=== PATIENT | male | born 1950 | race Caucasian/White ===

== ENCOUNTER → 2018-01-09 | Outpatient (CLI) | payer MEDICARE ==
[2018-01-09 13:00] LABS: HCT 43.9 % (39.0-53.0); HGB 15.3 gm/dL (13.0-17.5); MCH 33.4 pg (25.0-35.0); MCHC 34.9 g/dL (31.0-37.0); MCV 95.8 fL (80.0-100.0); Platelet Count 207 k/uL (150-450); RBC 4.59 m/uL (4.30-5.90); RDW 13.2 % (11.5-15.5); WBC 6.7 k/uL (3.8-10.6)
[2018-01-09 13:08] LABS: INR 1.1 (<1.2); Partial Thromboplastin Time 23.6 sec (22.0-30.0); Prothrombin Time 10.5 sec (9.0-12.0)
[2018-01-09 13:24] LABS: ALT 28 U/L (21-72); AST 23 U/L (17-59); Albumin 3.9 g/dL (3.5-5.0); Alkaline Phosphatase 65 U/L (38-126); Anion Gap 8 mmol/L; Blood Urea Nitrogen 15 mg/dL (9-20); Calcium 9.4 mg/dL (8.4-10.2); Carbon Dioxide 27 mmol/L (22-30); Chloride 107 mmol/L (98-107); Glucose 96 mg/dL (74-99); Potassium 4.4 mmol/L (3.5-5.1); Sodium 142 mmol/L (137-145); Total Bilirubin 0.7 mg/dL (0.2-1.3); Total Protein 6.2 g/dL (6.3-8.2)
[2018-01-09 14:43] LABS: Appearance,Urine Clear (Clear); Bilirubin,Urine Negative (Negative); Blood,Urine Negative (Negative); Color,Urine Yellow; Glucose,Urine (UA) Negative (Negative); Ketones,Urine Negative (Negative); Leukocyte Esterase,Urine Negative (Negative); Nitrite,Urine Negative (Negative); PH, Urine 5.5 (5.0-8.0); Protein,Urine Negative (Negative); Specific Gravity,Urine 1.019 (1.001-1.035); Urobilinogen,Urine <2.0 mg/dL (<2.0)
== END | disposition home or self-care (01) ==
LOC: LABPAT 11:58
PROVIDERS: ATTEND Orthopaedic Surgery
DX: Z01.812 Encounter for preprocedural laboratory examination (principal)
CPT/HCPCS: 36415; 80053; 81003; 85027; 85610; 85730; 87070

== ENCOUNTER 2018-01-13 10:25 | Inpatient (IN) | payer BC, MEDICARE ==
[2018-01-06 14:09] VITALS: BMI 29.5
[~2018-01-13 10:25] MED LIST: ACETAMINOPHEN TAB 500 MG TAB PO ONE; MELOXICAM 7.5 MG TAB PO ONE; MIDAZOLAM 2 MG/2 ML VIAL IV PRN; ROPIVACAINE 246.25 MG, EPINEPHrine 0.5 MG, KETOROLAC 30 MG, cloNIDine HCL/PF 80 MCG, WA... MISCELLANE ONE; TRANEXAMIC ACID 1,000 MG in SODIUM CHLORIDE 0.9% 50 ML IVPB ONE; ceFAZolin IN SWFI 2 GM/20 ML SYRINGE IVP ONE
[2018-01-13] MEDS: LACTATED RINGERS 1,000 ML IV SCH (12:40)
[2018-01-13] MEDS ORDERED: ONDANSETRON 4 MG/2 ML VIAL IVP ONE (13:05)
[2018-01-13] MEDS ORDERED: ROPIVACAINE 1,100 MG, SODIUM CHLORIDE 0.9% 500 ML 330 ML MISCELLANE PRN ×2 (13:45)
--- NOTE | 2018-01-13 13:47 | P.ONQ ---
Anesthesiology Proc Note - PNB - Peripheral Nerve Block Performed Right Adductor Canal Infusion Time Out Performed: Yes Procedure Start Time: 13:09 Procedure Stop Time: 13:17 Indication: Acute Post-Operative Pain, Requested by physician Sedation Type: Sedate with meaningful contact maintained Preparation: Sterile Dressing Position: Supine Catheter: Indwelling Needle Types: On-Q Needle Size: 100mm (4") Needle Gauge: 21 Technique: Ultrasound Injectate: 0.5% Ropivacaine (see comment for volume) (ropi .5% 20cc) Blood Aspirated: No Pain Paresthesia on Injection Noted: No Resistance on Injection: Normal Events: Uneventful and Well Tolerated
[2018-01-13] MEDS ORDERED: BISACODYL 10 MG SUPP RECTAL PRN (14:29)
[2018-01-13] MEDS ORDERED: DIAZEPAM 5 MG TAB PO PRN (14:29)
[2018-01-13] MEDS ORDERED: NA PHOS,M-B/NA PHOS,DI-BA 133 ML ENEMA RECTAL PRN (14:29)
[2018-01-13] MEDS ORDERED: NALOXONE 0.4 MG/ML 1 ML VIAL IV PRN (14:29)
[2018-01-13] MEDS ORDERED: HYDROcodone/APAP 5-325MG 1 EACH TAB PO PRN (14:29)
[2018-01-13] MEDS ORDERED: MAGNESIUM HYDROXIDE 2,400 MG/10 ML CUP PO PRN (14:29)
[2018-01-13] MEDS ORDERED: HYDROmorphone 1 MG/ML 1 ML SYRINGE IVP PRN ×3 (14:29)
[2018-01-13] MEDS ORDERED: KETAMINE 10 MG/ML 20 ML VIAL ONE (14:52)
[2018-01-13] MEDS ORDERED: PROPOFOL 10 MG/ML 20 ML VIAL IV ONE (14:52)
[2018-01-13] MEDS ORDERED: HYDROmorphone (PF) 1 MG/ML ONE (14:52)
[2018-01-13] MEDS ORDERED: GLYCOPYRROLATE 0.2 MG/ML 2 ML VIAL ONE (14:52)
[2018-01-13] MEDS ORDERED: fentaNYL (PF) 50 MCG/ML 2 ML AMP ONE (14:52)
[2018-01-13] MEDS ORDERED: SUCCINYLCHOLINE CHLORIDE 100 MG/5 ML SYR IV ONE (14:52)
[2018-01-13] MEDS ORDERED: LIDOCAINE 1% INJ 10MG/ML (20 ML MDV) ONE (14:52)
[2018-01-13] MEDS ORDERED: MIDAZOLAM 2 MG/2 ML VIAL ONE (14:52)
[2018-01-13] MEDS ORDERED: SODIUM CHLORIDE 0.9% 100 ML BAG ONE (14:52)
[2018-01-13] MEDS ORDERED: TRANEXAMIC ACID 1,000 MG/10 ML VIAL ONE (14:52)
[2018-01-13] MEDS ORDERED: ePHEDrine SULFATE/0.9% NACL/PF 50 MG/5 ML SYRINGE IV ONE (14:52)
[2018-01-13] MEDS ORDERED: ceFAZolin 3,000 MG in SODIUM CHLORIDE 0.9% IRRIGATIO 3,000 ML IRRIGATION ONE (14:52)
--- NOTE | 2018-01-13 16:20 | P.OP ---
Date of Procedure: 01/13/18 Preoperative Diagnosis: Severe osteoarthritis right knee Postoperative Diagnosis: Severe osteoarthritis right knee Procedure(s) Performed: Right total knee arthroplasty Implants: Abdi [employer] Nephew Journey II CR Oxinium cruciate retaining femoral component size 8, right [employer] Journey right nonporous tibial baseplate size 7 [employer] Journey II, XLPE CR articular insert, size 9 mm, Size 7-8 right [employer] Journey BCS resurfacing round patellar component, 32 mm All components were cemented using Palacos R bone cement.. The articulation is Oxinium on polyethylene. Anesthesia: spinal Surgeon: Jamarcus Bowie Clinical Genetics Laboratory Chief #1: Ro Hamm Estimated Blood Loss (ml): 50 Pathology: other (Bone and cartilage) Condition: stable Disposition: PACU Indications for Procedure: After failure of conservative treatment we discussed the surgical and nonsurgical treatment options at length. Patient wishes to proceed with a total knee arthroplasty. Complications specific to this procedure were discussed at length, including but not limited to infection, bleeding, stiffness , and nerve injury. Patient is aware of all these complications and informed consent was obtained Operative Findings: The operative findings are consistent with severe osteoarthritis of the right knee Description of Procedure: Patient was seen in the preoperative area consent was reviewed and operative site was marked with a skin marker. An adductor canal pain catheter was placed by anesthesia in the preoperative area. Patient was then brought to the operating room and given preoperative antibiotics intravenously. A spinal anesthetic was administered by the anesthesia department. A tourniquet was placed on the upper thigh and the lower extremity was prepped and draped in usual sterile fashion. A gram of transexamic acid was given. A universal timeout was then performed which confirmed the patient's name, surgical site, ALLERGIES, and consent. The lower extremity was then exsanguinated and tourniquet was inflated to 250 mmHg. A standard and anterior midline approach to the knee was performed. The skin and subcutaneous tissue was dissected down to the patellar tendon. A medial parapatellar arthrotomy was then performed. The knee was then extended, the patellar was everted, and the knee was again flexed. Anterior horns of both menisci were excised, and a release was performed to the posterior medial aspect of the knee. On gross visual inspection, there was complete loss of articular cartilage in the medial and patellofemoral joint spaces. There was also significant cartilage damage in the lateral compartment. There were multiple periarticular osteophytes which were then removed with a Ronguer. The femoral canal was then opened with the appropriate drill, and the intramedullary femoral cutting guide was then placed and set for 5 of valgus. The distal femoral cutting block was then pinned in place, and the distal femur was then cut. The cutting block was then removed and the cut was checked for flatness. Next, the sizing guide was then placed and set for 3 external rotation based off of the epicondylar axis and Whitesides line. After the femur was sized, the appropriate 4-in-1 cutting block was then pinned in place. The anterior condyles were cut without notching. The posterior and chamfer cuts were performed while protecting the collateral ligaments. The cutting block was then removed, and the femoral canal was plugged with autologous bone. Attention was then directed to the tibia. The remaining ACL was removed with a Ronguer, and the tibia was then gently subluxed forward with a large bent knee retractor. Any remaining menisci was excised. The posterior lateral corner was cauterized in order to cauterize the lateral geniculate artery. The extra medullary tibial cutting guide was then placed, set for the appropriate rotation , slope, and depth of resection. The proximal tibia cutting guide was then pinned in place. Proximal tibia was then cut and sized. Next trials were then placed with the appropriate-sized insert. The knee was able to fully extend and flex to 130 and was stable throughout all range of motion. The knee was then extended, patella everted. Patella was then measured, and then using an osteotomy guide, the patella was cut at the appropriate level. The patella was then measured and drilled and the patella trial was then placed. The knee was then taken through range of motion with the patella trial and the patella tracked normally. The knee was then extended patella trial was then removed and the patella was everted. Knee was then flexed and lug holes were drilled through the femoral trial and the femoral trial was then removed. The tibial was then exposed, and the tibial broach guide was then pinned in place after it was set for the appropriate rotation to allow for the most coverage without overhang. The tibia was then reamed and broached. The cut surfaces of bone were then irrigated with pulsatile lavage. The posterior structures were injected with the ropivacaine solution. The knee was also irrigated with Irrisept solution. The components were then opened, the cement was mixed, and the components were then cemented in place. The cement was allowed to harden with the knee in full extension. While the cement was hardening, the remaining soft tissues were then injected with a ropivacaine solution, which consisted of 246.25 mg of ropivacaine, 0.5 mg of epinephrine, 30 mg of Toradol, 80 g of clonidine, and 48.45 mL of sterile water, for a total of 100 mL of fluid injected. After the cemented hardened. The tourniquet was released, and hemostasis was obtained. A second gram of transexamic acid was given. The knee was again irrigated. The knee was again taken through range of motion and found to be stable throughout all range of motion of 0-130 , and the patella tracked normally. The fascia was then closed with #2 strata fix suture. The subcutaneous tissue was closed with 3-0 Vicryl and 3-0 strata fix. Dermabond glue was used for the skin and placed with the knee in flexion. The patient was placed in a sterile silver dressing. Patient was then transferred to recovery room in stable condition. The pediatric medical assistant RE Caicedo was required due the complexity surgery and the need for a skilled surgical clinical reviewer. She assisted in positioning, draping, retraction, and closure of the wound.
[2018-01-13] MEDS: fentaNYL (PF) 50 MCG/ML 2 ML AMP IV PRN ×4 (16:56→17:42)
--- NOTE | 2018-01-13 17:22 | XR ---
PROCEDURE: XR knee limited RT 2V DATE AND TIME: 01/13/2018 5:05 PM CLINICAL INDICATION: [facility] Evaluation for Postop abnormality and alignment TECHNIQUE: Department protocol. 2V COMPARISON: None FINDINGS: TKR is well-seated with anatomic positioning and alignment. No unexpected postoperative fin dings. IMPRESSION: Post procedure.
[2018-01-13] MEDS: SODIUM CHLORIDE 0.9% 1,000 ML IV SCH (17:51)
[2018-01-13] MEDS: SENNOSIDES-DOCUSATE SODIUM 1 EACH TAB PO SCH (21:58)
[2018-01-13] MEDS: ASPIRIN 325 MG TAB PO SCH (21:58)
[2018-01-13] MEDS: ceFAZolin IN SWFI 2 GM/20 ML SYRINGE IVP SCH (22:31)
--- NOTE | 2018-01-14 00:06 | CONS ---
CONSULTATION DATE OF CONSULTATION: 01/13/2018. REASON FOR CONSULTATION: Medical management requested by Dr. Bowie. CONSULTATION: This is a very pleasant 67-year-old patient of Dr. Prashanth Childers. The patient has undergone a right total knee arthroplasty. Post procedure, had some nausea. Other stable medical conditions include osteoarthritis, hypertension. No chest pain or short of breath. Denies any cardiac history. Somewhat tired post procedure. REVIEW OF SYSTEMS: CONSTITUTIONAL: Tired. HEENT: None. RESPIRATORY none. GASTROINTESTINAL: Nausea. GENITOURINARY: None. MUSCULOSKELETAL: Arthritic pain in different joints. DERMATOLOGICAL, HEMATOLOGIC, LYMPHATIC: none. PSYCHIATRY none. NEUROLOGICAL none. PAST MEDICAL HISTORY: Osteoarthritis, hypertension. PAST SURGICAL HISTORY: Back surgery, cervical fusion. SOCIAL HISTORY: . Smoked a pack a day for 30 years. Stopped in 2002. Occasional marijuana. Retired from hospital management. FAMILY HISTORY: Of cancer, type unknown. HOME MEDICATIONS: 1. Norvasc 10 mg a day. 2. Altace 10 mg b.i.d. 3. Naproxen 500 mg p.o. b.i.d. 4. Hydrochlorothiazide 12.5 p.o. daily. 5. Cardura 2 mg p.o. b.i.d. 6. Aspirin 81 mg p.o. daily. ALLERGIES: None. PHYSICAL EXAMINATION: VITAL SIGNS: Temperature 98.5, pulse 72, respirations 17, blood pressure 147/92, pulse ox 95 percent on 2 L. GENERAL APPEARANCE: Average build, lying in bed, tired appearing. EYES: Pupils are equal. Conjunctivae normal. HEENT: External appearance of nose and ears normal. Oral cavity normal. NECK: JVD not raised. Mass not palpable. RESPIRATORY: Effort normal. LUNGS: Slightly decreased breath sounds. CARDIOVASCULAR: 1st and 2nd sounds normal. No edema. ABDOMEN: Soft, nontender. Liver and spleen not palpable. LYMPHATICS: No lymph nodes palpable in the neck and axillae. PSYCHIATRY: Alert and oriented x3. Mood and affect normal. NEUROLOGICAL: Pupils equal. Cranial nerves grossly intact. Power and sensation grossly intact. MUSCULOSKELETAL: Evidence of osteoarthritis especially in the hands. Dressing over the right knee. INVESTIGATIONS: Blood work from 01/09/2018 shows a white count of 6.7, hemoglobin 15.3, potassium 4.4. BUN and creatinine is normal. ASSESSMENT: 1. Right total knee arthroplasty. 2. Primary osteoarthritis. 3. Postop nausea probably side effect of pain medication. 4. Essential hypertension. PLAN: Patient is on aspirin 3-5 twice a day. DVT prophylaxis. Pain medications in place. Also getting gentle hydration. Venodyne boots for DVT prophylaxis also. The patient will get antiemetics. Care was discussed with the patient. Questions were answered. Thank you, Dr. Bowie. Copy to Dr. Childers. MMBROOKEL / MELISSAN: [id number] /
[2018-01-14] MEDS: SODIUM CHLORIDE 0.9% 1,000 ML IV SCH ×2 (04:06→18:01)
[2018-01-14] MEDS: HYDROcodone/APAP 5-325MG 1 EACH TAB PO PRN ×4 (04:29→23:02)
[2018-01-14] MEDS: LACTATED RINGERS 1,000 ML IV SCH (05:09)
[2018-01-14 07:50] LABS: Basophils % (A) 0 %; Eosinophils # (A) 0.1 k/uL (0-0.7); Eosinophils % (A) 1 %; HCT 40.6 % (39.0-53.0); HGB 13.7 gm/dL (13.0-17.5); Lymphocytes % (A) 10 %; MCH 32.9 pg (25.0-35.0); MCHC 33.8 g/dL (31.0-37.0); MCV 97.4 fL (80.0-100.0); Mean Platelet Volume 6.8; Monocytes # (A) 0.5 k/uL (0-1.0); Monocytes % (A) 5 %; Neutrophils # (A) 8.8 k/uL (1.3-7.7); Neutrophils % (A) 83 %; Platelet Count 199 k/uL (150-450); RBC 4.17 m/uL (4.30-5.90); RDW 13.2 % (11.5-15.5); WBC 10.5 k/uL (3.8-10.6)
[2018-01-14] MEDS: HYDROCHLOROTHIAZIDE 12.5 MG CAP PO SCH (07:57)
[2018-01-14] MEDS: MELOXICAM 7.5 MG TAB PO SCH (07:57)
[2018-01-14] MEDS: LISINOPRIL 20 MG TAB PO SCH ×2 (07:57→23:03)
[2018-01-14] MEDS: ASPIRIN 325 MG TAB PO SCH ×2 (07:58→23:03)
[2018-01-14] MEDS: amLODIPine 10 MG TAB PO SCH (07:58)
[2018-01-14] MEDS: DOXAZOSIN 2 MG TAB PO SCH ×2 (08:39→23:03)
[2018-01-14] MEDS: ceFAZolin IN SWFI 2 GM/20 ML SYRINGE IVP SCH (08:39)
--- NOTE | 2018-01-14 09:19 | P.DS ---
Providers Date of admission: 01/13/18 11:25 Expected date of discharge: 01/14/18 Attending physician: Jamarcus Bowie Consults: 01/13/18 14:29 Consult Physician Routine Consulting Provider: Satya Champagne Consult Reason/Comments: medical management Do you want consulting provider notified?: Yes Primary care physician: Prashanth Childers - Discharge Diagnosis(es) (1) Primary osteoarthritis of right knee Current Visit: Yes Status: Acute (2) S/P total knee arthroplasty Current Visit: Yes Status: Acute Hospital Course: This is a 67-year-old male with known history of degenerative arthritis of the right knee. The patient presents for evaluation. After discussion and consideration patient elects to proceed with total knee arthroplasty. The patient is seen preoperatively by Dr. Bowie and medically cleared for surgery by their primary care physician. Patient is admitted to [facility] on 01/13/2018 for total knee arthroplasty. The procedures performed without complication or sequelae. The patient is doing well postoperatively. Labs and vital signs are stable on day of discharge. On day of discharge patient's knee incision is healing well. There is minimal erythema. There is no drainage noted at this time. There is minimal soft tissue swelling to the knee. Patient has full foot and ankle motion without difficulty or pain. Neurovascular status to the right lower extremity is intact. Patient is discharged home in good condition. Please see med rec for accurate list of home medications. Plan - Discharge Summary Discharge Rx Participant: Yes New Discharge Prescriptions: New Aspirin 325 mg PO BID #60 tab HYDROcodone/APAP 5-325MG [[place] 5-325] 1 - 2 tab PO Q4-6H PRN #84 tab PRN Reason: Pain Sennosides [Senokot] 1 tab PO BID #60 tablet No Action amLODIPine [Norvasc] 10 mg PO QAM Ramipril [Altace] 10 mg PO BID Naproxen 500 mg PO BID Hydrochlorothiazide 12.5 mg PO QAM Doxazosin [Cardura] 2 mg PO BID Aspirin [Adult Low Dose Aspirin EC] 81 mg PO DAILY Discharge Medication List Aspirin [Adult Low Dose Aspirin EC] 81 mg PO DAILY 01/06/18 [History] Doxazosin [Cardura] 2 mg PO BID 01/06/18 [History] Hydrochlorothiazide 12.5 mg PO QAM 01/06/18 [History] Naproxen 500 mg PO BID 01/06/18 [History] Ramipril [Altace] 10 mg PO BID 01/06/18 [History] amLODIPine [Norvasc] 10 mg PO QAM 01/06/18 [History] Aspirin 325 mg PO BID #60 tab 01/14/18 [Rx] HYDROcodone/APAP 5-325MG [[place] 5-325] 1 - 2 tab PO Q4-6H PRN #84 tab 01/14/18 [ Rx] Sennosides [Senokot] 1 tab PO BID #60 tablet 01/14/18 [Rx] Follow up Appointment(s)/Referral(s): Jamarcus Bowie DO [Doctor of Osteopathic Medicine] - 2 Weeks Ambulatory/Diagnostic Orders: Continuous Passive Motion (CPM) Machine [DME.AMB1] Time Frame: 3 Weeks, Location : None Selected Activity/Diet/Wound Care/Special Instructions: Weightbearing as tolerated with a walker. CPM 5-6h daily. Leave dressing intact. May be removed by home care nurse in 10 days. May shower with dressing on. Please call [facility] with any questions or concerns, . Discharge Disposition: HOME WITH HOME HEALTH SERVICES
--- NOTE | 2018-01-14 09:25 | P.PN ---
Progress Note - Text Progress Note Date: 01/14/18 The patient is status post[ 1] adductor canal catheter placement. The catheter was placed for postoperative pain control, status post total [Right Knee] arthroplasty. Ropivacaine 0.2% is infusing at[5] mLs per hour. The patient has no complaints of[ right] lower extremity numbness or weakness. Patient's VAS score is[ 2]-10. Assessment: Patient's adductor canal catheter is in place and working appropriately. Plan: continue infusion and adjust it as needed.
[2018-01-14] MEDS: hydrOXYzine PAMOATE 25 MG CAP PO PRN ×3 (09:44→23:03)
--- NOTE | 2018-01-14 18:03 | P.PN ---
Subjective this is a pleasant 67 yo M with pmh of Hypertension who presents for his right knee degenerative disease. he is status post right total knee arthroplasaty when i saw the pt he was sitting in bed, his pain is controlled, pt denies to me chest pain , no dyspnea, no change in urine or bowel habits, no fever, no nausea or vomiting. pt tolerated his meal. his vitals looks stable and he is saturating 93% on room air,wbc: 10.5K, Hemoglobin: 13.7, Platelets: 199 Objective - Vital Signs Vital signs: Vital Signs Temp 98.1 F 01/14/18 14:40 Pulse 63 01/14/18 14:40 Resp 16 01/14/18 14:40 BP 121/73 01/14/18 14:40 Pulse Ox 94 L 01/14/18 14:40 Intake & Output 01/13/18 01/14/18 01/14/18 18:59 06:59 18:59 Intake Total 976 615 500 Output Total 50 400 Balance 926 215 500 Weight 98.883 kg Intake: IV 976 Intake, IV Titration 75 500 Amount Sodium Chloride 0.9% 1, 75 500 000 ml @ 75 mls/hr IV . [id number] [facility] Rx#:[id number] Oral 540 Output: Urine 400 Estimated Blood Loss 50 Other: # Voids 3 - Exam GENERAL: The patient is alert and oriented x3, not in any acute distress. Well developed, well nourished. HEENT: Pupils are round and equally reacting to light. EOMI. No scleral icterus. No conjunctival pallor. Normocephalic, atraumatic. No pharyngeal erythema. No thyromegaly. CARDIOVASCULAR: S1 and S2 present. No murmurs, rubs, or gallops. PULMONARY: Chest is clear to auscultation, no wheezing or crackles. ABDOMEN: Soft, nontender, nondistended, normoactive bowel sounds. No palpable organomegaly. MUSCULOSKELETAL: No joint swelling or deformity. EXTREMITIES: No cyanosis, clubbing, or pedal edema. surgical wound looks clean with no surrounding cellulitis, further exam is deferred to the primary surgical team. NEUROLOGICAL: Gross neurological examination did not reveal any focal deficits. SKIN: No rashes. - Labs CBC & Chem 7: 01/14/18 07:01 Labs: Abnormal Lab Results - Last 24 Hours (Table) 01/14/18 Range/Units 07:01 RBC 4.17 L (4.30-5.90) m/uL Neutrophils # 8.8 H (1.3-7.7) k/uL Assessment and Plan Assessment: This is a pleasant 72 yo M with pmh of Hypertension , hyperlipidemia, steoarthritis, Diabetes Mellitus, kidney stones, possible sleep apnea, spinal stenois, glaucoma, coronary artery disease status post CABG. he presents for his left knee degenerative disease. he is status post left total knee arthroplasaty w . when i saw the pt he was sitting in bed, his pain is controlled ,, pt denies to me chest pain , no dyspnea, no change in urine or bowel habits, no fever, no nausea or vomiting. pt tolerated his meal. his vitals looks stable and he is saturating 98% on room air,wbc: 9.1K, Hemoglobin: 9.6, Platelets: 248. hemoglobin A1c 8.1% Plan: continue with the same treatment , continue with symptomatic treatment , resume home medication , monitor lytes and vitals including glucose , c/w iv fluids, cardiology consult is appreciated. infectious disease consult is appreciated . c /w same antibioitc . GI and DVT prophylaxis , further recommendation based upon pt clinical course and progress DVT prophylaxis subcutaneous heparin GI prophylaxis Pepcid Prognosis is guarded
[2018-01-14] MEDS: SENNOSIDES-DOCUSATE SODIUM 1 EACH TAB PO SCH (23:03)
[2018-01-15] MEDS: SODIUM CHLORIDE 0.9% 1,000 ML IV SCH (05:08)
[2018-01-15] MEDS: LACTATED RINGERS 1,000 ML IV SCH (05:08)
[2018-01-15] MEDS: HYDROcodone/APAP 5-325MG 1 EACH TAB PO PRN ×2 (05:14→16:37)
[2018-01-15] MEDS: LISINOPRIL 20 MG TAB PO SCH (08:33)
[2018-01-15] MEDS: DOXAZOSIN 2 MG TAB PO SCH (08:33)
[2018-01-15] MEDS: amLODIPine 10 MG TAB PO SCH (08:33)
[2018-01-15] MEDS: ASPIRIN 325 MG TAB PO SCH (08:33)
[2018-01-15] MEDS: MELOXICAM 7.5 MG TAB PO SCH (08:34)
[2018-01-15] MEDS: HYDROCHLOROTHIAZIDE 12.5 MG CAP PO SCH (08:34)
[2018-01-15] MEDS ORDERED: HYDROcodone/APAP 7.5-325MG 1 EACH TAB PO PRN (09:20)
--- NOTE | 2018-01-15 10:15 | P.PN ---
Subjective this is a pleasant 67 yo M with pmh of Hypertension who presents for his right knee degenerative disease. he is status post right total knee arthroplasaty when i saw the pt he was sitting in bed, his pain is controlled, pt denies to me chest pain , no dyspnea, no change in urine or bowel habits, no fever, no nausea or vomiting. pt tolerated his meal. his vitals looks stable and he is saturating 93% on room air,wbc: 10.5K, Hemoglobin: 13.7, Platelets: 199 01/15/2018 Patient is seen and examined by me at bedside. Patient is doing well after surgery. Patient denies chest pain or dyspnea. He says his pain is controlled. Didn't complain about bowel movement and urine output. Patient was instructed to follow up with his PCP in one week and he stated that he has an appointment with his PCP by the end of January in 2-1/2 weeks. Objective - Vital Signs Vital signs: Vital Signs Temp 98.1 F 01/15/18 08:07 Pulse 74 01/15/18 08:07 Resp 16 01/15/18 08:07 BP 154/92 01/15/18 08:07 Pulse Ox 94 L 01/15/18 08:07 Intake & Output 01/14/18 01/15/18 01/15/18 18:59 06:59 18:59 Intake Total 500 1080 Output Total 275 Balance 500 805 Intake: Intake, IV Titration 500 Amount Sodium Chloride 0.9% 1, 500 000 ml @ 75 mls/hr IV . [id number] [facility] Rx#:[id number] Oral 1080 Output: Urine 275 Other: Voiding Method Toilet Urinal # Voids 3 - Exam GENERAL: The patient is alert and oriented x3, not in any acute distress. Well developed, well nourished. HEENT: Pupils are round and equally reacting to light. EOMI. No scleral icterus. No conjunctival pallor. Normocephalic, atraumatic. No pharyngeal erythema. No thyromegaly. CARDIOVASCULAR: S1 and S2 present. No murmurs, rubs, or gallops. PULMONARY: Chest is clear to auscultation, no wheezing or crackles. ABDOMEN: Soft, nontender, nondistended, normoactive bowel sounds. No palpable organomegaly. MUSCULOSKELETAL: No joint swelling or deformity. EXTREMITIES: No cyanosis, clubbing, or pedal edema. surgical wound looks clean with no surrounding cellulitis, further exam is deferred to the primary surgical team. NEUROLOGICAL: Gross neurological examination did not reveal any focal deficits. SKIN: No rashes. - Labs CBC & Chem 7: 01/14/18 07:01 Assessment and Plan Assessment: This is a pleasant 72 yo M with pmh of Hypertension , hyperlipidemia, steoarthritis, Diabetes Mellitus, kidney stones, possible sleep apnea, spinal stenois, glaucoma, coronary artery disease status post CABG. he presents for his left knee degenerative disease. he is status post left total knee arthroplasaty w . when i saw the pt he was sitting in bed, his pain is controlled ,, pt denies to me chest pain , no dyspnea, no change in urine or bowel habits, no fever, no nausea or vomiting. pt tolerated his meal. his vitals looks stable and he is saturating 98% on room air,wbc: 9.1K, Hemoglobin: 9.6, Platelets: 248. hemoglobin A1c 8.1% Plan: continue with the same treatment , continue with symptomatic treatment , resume home medication , monitor lytes and vitals including glucose , c/w iv fluids, cardiology consult is appreciated. infectious disease consult is appreciated . c /w same antibioitc . GI and DVT prophylaxis , further recommendation based upon pt clinical course and progress DVT prophylaxis subcutaneous heparin GI prophylaxis Pepcid Patient was instructed to follow up with his PCP in one week after discharge. Patient states he has an appointment with his PCP by the end of January and 2 and half weeks Prognosis is guarded Thank you for consulting us, please feel free to contact us for any further question or concerns.
[2018-01-15] MEDS: hydrOXYzine PAMOATE 25 MG CAP PO PRN ×2 (10:48→16:37)
[2018-01-15] MEDS ORDERED: HYDROmorphone 2 MG TAB PO PRN ×3 (12:11→12:12)
--- NOTE | 2018-01-15 13:03 | P.PN ---
Progress Note - Text Anesthesia POD 2. Patient is status post right TKR under spinal anesthesia with a right adductor canal catheter placed for postoperative pain relief. With ropivacaine 0.2% running at 10 cc's per hour, the patient's VAS is (1, 3). Catheter site is clean dry and intact.
[2018-01-15 16:10] VITALS: BP 149/88; PULSE 55; RESP 12; TEMP 98
== END 2018-01-15 16:45 | disposition home health service (06) | DRG 470 ==
LOC: 2ORMAIN 11:25 → 4SSUR 16:55
PROVIDERS: ADMIT Orthopaedic Surgery; ATTEND Orthopaedic Surgery
PROC: 0SRC069 Replacement of Right Knee Joint with Oxidized Zirconium on Polyethylene Synthetic Substitute, Cemented, Open Approach (ICD-10-PCS; principal; 2018-01-13 13:45)
DX: M17.11 Unilateral primary osteoarthritis, right knee (principal); I10 Essential (primary) hypertension; E78.5 Hyperlipidemia, unspecified; E11.9 Type 2 diabetes mellitus without complications; M25.761 Osteophyte, right knee; H40.9 Unspecified glaucoma; I25.10 Atherosclerotic heart disease of native coronary artery without angina pectoris; G47.30 Sleep apnea, unspecified; M48.00 Spinal stenosis, site unspecified; Z95.1 Presence of aortocoronary bypass graft; Z79.82 Long term (current) use of aspirin; Z79.899 Other long term (current) drug therapy; Z87.442 Personal history of urinary calculi
CPT/HCPCS: 85025; 88300

== ENCOUNTER → 2018-02-16 | Outpatient (CLI) | payer MEDICARE ==
[2018-02-16 17:46] LABS: Basophils % (A) 0 %; Eosinophils # (A) 0.3 k/uL (0-0.7); Eosinophils % (A) 1 %; HCT 41.6 % (39.0-53.0); HGB 13.9 gm/dL (13.0-17.5); Lymphocytes # (A) 0.9 k/uL (1.0-4.8); Lymphocytes % (A) 4 %; MCH 32.3 pg (25.0-35.0); MCHC 33.5 g/dL (31.0-37.0); MCV 96.5 fL (80.0-100.0); Mean Platelet Volume 7.4; Monocytes # (A) 0.8 k/uL (0-1.0); Monocytes % (A) 4 %; Neutrophils # (A) 18.9 k/uL (1.3-7.7); Neutrophils % (A) 90 %; Platelet Count 164 k/uL (150-450); RBC 4.31 m/uL (4.30-5.90); RDW 13.1 % (11.5-15.5); WBC 21.1 k/uL (3.8-10.6)
[2018-02-16 17:58] LABS: Appearance,BF Cloudy; Color,BF Orange
[2018-02-16 18:40] LABS: Nucleated Cells, Body Fluid 110100 /uL; RBC, Body Fluid 58500 /uL
[2018-02-16 18:43] LABS: Mononuclear WBC,Body Fluid 1 %; Polynuclear WBC,Body Fluid 97 %; Total Cells Counted,Body Fluid 100
[2018-02-16 19:14] LABS: Erythrocyte Sedimentation Rate 15 mm/hr (0-15)
== END ==
LOC: LABWHC1 16:16
PROVIDERS: ATTEND Orthopaedic Surgery
DX: M25.561 Pain in right knee (principal); Z96.651 Presence of right artificial knee joint
CPT/HCPCS: 36415; 85025; 85652; 86140; 87070; 87075; 87205; 89050; 89060

== ENCOUNTER 2018-02-17 13:49 | Inpatient (IN) | payer MEDICARE ==
--- NOTE | 2018-02-17 13:33 | P.HPOR ---
History of Present Illness H&P Date: 02/17/18 This is a 67-year-old male who is status post right total knee arthroplasty on 01/13/2018. The patient presented as an outpatient for follow up on 02/16/2018 and complained of swelling and mild drainage in the right knee. The patient's knee was aspirated and fluid was sent to the lab for analysis and culture. The patient was scheduled for an incision and drainage of the right knee and the patient was sent for routine blood work. Patient denies fever, but did admit to chills. Patient denies any numbness, weakness, tingling, abdominal pain, shortness of breath or chest pain. Review of Systems See HPI. Past Medical History Past Medical History: Hypertension History of Any Multi-Drug Resistant Organisms: None Reported Past Surgical History: Back Surgery Additional Past Surgical History / Comment(s): lumbar coflex implant 09/1917, cervical fusion Past Anesthesia/Blood Transfusion Reactions: No Reported Reaction Past Psychological History: No Psychological Hx Reported Smoking Status: Former smoker Past Alcohol Use History: Occasional Additional Past Alcohol Use History / Comment(s): quit smoking approx 2002, smoked 1ppd from Past Drug Use History: Marijuana Additional Drug Use History / Comment(s): occasional use, instructed to hold 24hrs prior to procedure - Past Family History Mother Family Medical History: Cancer Medications and Allergies Home Medications Medication Instructions Recorded Confirmed Type Aspirin [Adult Low Dose Aspirin EC] 81 mg PO DAILY 01/06/18 01/13/18 History Doxazosin [Cardura] 2 mg PO BID 01/06/18 01/13/18 History Hydrochlorothiazide 12.5 mg PO QAM 01/06/18 01/13/18 History Naproxen 500 mg PO BID 01/06/18 01/13/18 History Ramipril [Altace] 10 mg PO BID 01/06/18 01/13/18 History amLODIPine [Norvasc] 10 mg PO QAM 01/06/18 01/13/18 History Aspirin 325 mg PO BID #60 tab 01/14/18 Rx Sennosides [Senokot] 1 tab PO BID #60 tablet 01/14/18 Rx HYDROcodone/APAP 7.5-325MG [[place] 1 - 2 tab PO Q4-6H PRN #84 tab 01/15/18 Rx 7.5-325] Allergies Allergy/AdvReac Type Severity Reaction Status Date / Time No Known Allergies Allergy Verified 01/13/18 16:49 Physical Examination On exam patient is well-appearing. There is swelling of the right knee. There is mild drainage from the incision. Patient has limited range of motion of the right knee due to pain and swelling. Calf is soft and nontender to palpation. Sensation is intact. Neurovascular status and circulatory status are intact. Assessment and Plan (1) S/P total knee arthroplasty Current Visit: No Status: Acute Code(s): Z96.659 - PRESENCE OF UNSPECIFIED ARTIFICIAL KNEE JOINT SNOMED Code(s): 4860717075112 (2) Infection of total right knee replacement Current Visit: Yes Status: Acute Code(s): T84.53XA - INFECT/INFLM REACTION DUE TO INTERNAL R KNEE PROSTH, INIT SNOMED Code(s): 606671377 Plan: 1. Cultures are pending. 2. CBC shows elevated white count and synovial fluid analysis shows evidence for infection. 3. Will consult infectious disease postoperatively. 4. Incision and drainage of the right knee is scheduled for today in the operating room.
[2018-02-17] MEDS: ONDANSETRON 4 MG/2 ML VIAL IVP ONE ×2 (14:17→18:51)
[2018-02-17] MEDS ORDERED: LIDOCAINE 1% 20 ML VIAL (10MG/ML) FOR IV START INTRADERMA ONE (14:17)
[2018-02-17] MEDS ORDERED: LACTATED RINGERS 1,000 ML IV ONE ×2 (14:17→17:19)
[2018-02-17] MEDS: MIDAZOLAM 2 MG/2 ML VIAL IV ONE ×3 (14:58→18:31)
[2018-02-17] MEDS ORDERED: ceFAZolin IN SWFI 2 GM/20 ML SYRINGE IVP STA (15:56)
[2018-02-17] MEDS ORDERED: BISACODYL 10 MG SUPP RECTAL PRN (16:27)
[2018-02-17] MEDS ORDERED: ONDANSETRON 4 MG/2 ML VIAL IVP PRN (16:27)
[2018-02-17] MEDS ORDERED: MAGNESIUM HYDROXIDE 2,400 MG/10 ML CUP PO PRN (16:27)
[2018-02-17] MEDS ORDERED: NA PHOS,M-B/NA PHOS,DI-BA 133 ML ENEMA RECTAL PRN (16:27)
[2018-02-17] MEDS ORDERED: HYDROmorphone 1 MG/ML 1 ML SYRINGE IVP PRN ×3 (16:27)
[2018-02-17] MEDS ORDERED: NALOXONE 0.4 MG/ML 1 ML VIAL IV PRN (16:27)
[2018-02-17] MEDS ORDERED: DIAZEPAM 5 MG TAB PO PRN (16:27)
[2018-02-17] MEDS ORDERED: HYDROcodone/APAP 7.5-325MG 1 EACH TAB PO PRN (16:30)
[2018-02-17] MEDS ORDERED: TOBRAMYCIN SULFATE 1.2 GM VIAL IRRIGATION ONE (16:34)
[2018-02-17] MEDS ORDERED: VANCOMYCIN 1,000 MG VIAL MISCELLANE ONE ×2 (16:35)
[2018-02-17] MEDS ORDERED: LIDOCAINE 1% INJ 10MG/ML (20 ML MDV) ONE (16:38)
[2018-02-17] MEDS ORDERED: PROPOFOL 10 MG/ML 20 ML VIAL IV ONE (16:38)
[2018-02-17] MEDS ORDERED: SUCCINYLCHOLINE CHLORIDE VIAL 200 MG/10 ML VIAL IV ONE (16:38)
[2018-02-17] MEDS ORDERED: GLYCOPYRROLATE 0.2 MG/ML 2 ML VIAL ONE (16:38)
[2018-02-17] MEDS ORDERED: NEOSTIGMINE 1 MG/ML 10 ML VIAL ONE (16:38)
[2018-02-17] MEDS ORDERED: VECURONIUM 10 MG VIAL IV ONE (16:38)
[2018-02-17] MEDS ORDERED: HYDROmorphone (PF) 1 MG/ML ONE (16:38)
[2018-02-17] MEDS ORDERED: fentaNYL (PF) 50 MCG/ML 2 ML AMP ONE (16:38)
[2018-02-17] MEDS ORDERED: MIDAZOLAM 2 MG/2 ML VIAL ONE (16:38)
[2018-02-17] MEDS ORDERED: ceFAZolin 3,000 MG in SODIUM CHLORIDE 0.9% IRRIGATIO 3,000 ML IRRIGATION ONE (17:05)
--- NOTE | 2018-02-17 17:33 | P.OP ---
Date of Procedure: 02/17/18 Preoperative Diagnosis: Infection right total knee arthroplasty Postoperative Diagnosis: Infection right total knee arthroplasty Procedure(s) Performed: Irrigation and debridement of the right total knee with polyethylene exchange. Implants: [employer] II, XLPE CR articular insert, size 9 mm, Size 7-8 right Anesthesia: GETA Surgeon: Jamarcus Bowie Painter Aircraft #1: Ro Hamm Estimated Blood Loss (ml): 100 Pathology: other (Cultures 2) Condition: stable Disposition: PACU Indications for Procedure: This is a 59-year-old gentleman has had a right total knee arthroplasty performed by myself approximately 1 month ago. He was initially doing well and then presented yesterday to the office with increased pain and swelling and drainage from his right knee. An aspiration was performed confirmed an infection in his right total knee after discussing the surgical nonsurgical treatment options with him at length, I recommended an urgent irrigation and debridement and polyethylene exchange of his right knee in order to attempt to save the components. He is agreeable to this informed consent was obtained. Operative Findings: The operative findings show an infection in the pre-patellar space and the knee. The deep knee did not appear to be infected.. Description of Procedure: Patient was seen in the preoperative area consent was reviewed and operative site was marked with a skin marker. Patient was then brought to the operating room and given preoperative antibiotics intravenously. A general anesthetic was administered by the anesthesia department. A tourniquet was placed on the upper thigh and the lower extremity was prepped and draped in usual sterile fashion. A universal timeout was then performed which confirmed the patient's name, surgical site, ALLERGIES, and consent. A standard and anterior midline approach to the knee was performed, with the prior scar being excised.. The skin and subcutaneous tissue was dissected down to the patellar tendon. Upon entry through the skin and a large amount of purulent fluid was encountered. This was cultured 2. The prepatellar area was then extensively irrigated and any suspicious tissue was removed. After thorough irrigation and debridement of the prepatellar area, A medial parapatellar arthrotomy was then performed. A moderate amount of clear fluid was encountered and this was cultured. This fluid appeared was normal in appearance, and there was no signs of any purulent material in the deep knee joint. The knee was then extended, the patellar was everted, and the knee was again flexed. The polyethylene was then easily removed. The components were evaluated and found to be well fixed to the bone. The knee was then copiously irrigated with pulsatile lavage. Next a new polyethylene was inserted with component locking confirmed. The knee was also irrigated with Irrisept solution. The knee was again taken through range of motion and found to be stable throughout all range of motion of 0-130, and the patella tracked normally. The fascia was then closed with #2 strata fix suture. The subcutaneous tissue was closed with 3-0 Vic[address]. The patient was placed in a sterile silver dressing. Patient was then transferred to recovery room in stable condition. The accounting administrative assistant RE Caicedo was required due the complexity surgery and the need for a skilled surgical services manager. She assisted in positioning, draping, retraction, and closure of the wound.
[2018-02-17] MEDS: HYDROmorphone 1 MG/ML 1 ML SYRINGE IVP ONE ×4 (18:05→18:56)
--- NOTE | 2018-02-17 19:37 | XR ---
PROCEDURE: XR knee limited RT - 2V DATE AND TIME: 02/17/2018 7:12 PM CLINICAL INDICATION: PHH; Evaluation for Postop abnormality and alignment TECHNIQUE: Department protocol COMPARISON: None FINDINGS: The TKR appears anatomic in its positioning and alignment. Postprocedural changes are noted . IMPRESSION: Postoperative AP and crosstable lateral views.
[2018-02-17] MEDS: ceFAZolin IN SWFI 2 GM/20 ML SYRINGE IVP SCH (23:24)
[2018-02-17] MEDS: ASPIRIN 325 MG TAB PO SCH (23:24)
[2018-02-17] MEDS: HYDROcodone/APAP 7.5-325MG 1 EACH TAB PO PRN (23:24)
[2018-02-17] MEDS: SENNOSIDES-DOCUSATE SODIUM 1 EACH TAB PO SCH (23:25)
[2018-02-17] MEDS: hydrOXYzine PAMOATE 25 MG CAP PO PRN (23:33)
[2018-02-18 00:57] VITALS: BMI 29.8
[2018-02-18] MEDS: HYDROcodone/APAP 7.5-325MG 1 EACH TAB PO PRN ×3 (04:44→23:13)
[2018-02-18] MEDS: SODIUM CHLORIDE 0.9% 1,000 ML IV SCH ×3 (04:45→17:13)
[2018-02-18 08:34] LABS: Basophils # (A) 0.1 k/uL (0-0.2); Basophils % (A) 0 %; Eosinophils # (A) 0.4 k/uL (0-0.7); Eosinophils % (A) 3 %; HCT 35.3 % (39.0-53.0); HGB 11.9 gm/dL (13.0-17.5); Lymphocytes % (A) 8 %; MCH 32.7 pg (25.0-35.0); MCHC 33.9 g/dL (31.0-37.0); MCV 96.4 fL (80.0-100.0); Mean Platelet Volume 7.5; Monocytes # (A) 0.8 k/uL (0-1.0); Monocytes % (A) 6 %; Neutrophils # (A) 10.6 k/uL (1.3-7.7); Neutrophils % (A) 81 %; Platelet Count 176 k/uL (150-450); RBC 3.66 m/uL (4.30-5.90); WBC 13.1 k/uL (3.8-10.6)
--- NOTE | 2018-02-18 09:11 | P.PN ---
Subjective Progress Note Date: 02/18/18 This is a 67-year-old male who is status post irrigation and debridement of right total knee arthroplasty with polyethylene exchange. This is postoperative day #1. Patient is seen and evaluated at bedside with Dr. Jamarcus Bowie. Patient states that his pain is well controlled today. Patient denies any fever/chills, numbness, weakness, tingling, abdominal pain, shortness of breath or chest pain. Objective - Vital Signs Vital signs: Vital Signs Temp 98.9 F 02/18/18 07:00 Pulse 88 02/18/18 07:00 Resp 18 02/18/18 07:00 BP 131/71 02/18/18 07:00 Pulse Ox 94 L 02/17/18 23:00 Intake & Output 02/17/18 02/18/18 02/18/18 18:59 06:59 18:59 Intake Total 1151 350 220 Output Total 100 175 Balance 1051 175 220 Weight 99.79 kg 99.79 kg Intake: IV 1151 350 Oral 220 Output: Urine 175 Estimated Blood Loss 100 - Exam Vital signs are stable. Patient is in no acute distress and is alert and oriented 3. Calf is soft and nontender to palpation. Dressing is clean, dry, and intact. Patient has full foot and ankle motion without pain or difficulty. Neurovascular status and circulatory status are intact. - Labs CBC & Chem 7: 02/18/18 07:40 Labs: Abnormal Lab Results - Last 24 Hours (Table) 02/18/18 Range/Units 07:40 WBC 13.1 H (3.8-10.6) k/uL RBC 3.66 L (4.30-5.90) m/uL Hgb 11.9 L (13.0-17.5) gm/dL Hct 35.3 L (39.0-53.0) % Neutrophils # 10.6 H (1.3-7.7) k/uL Microbiology - Last 24 Hours (Table) 02/17/18 17:15 Wound Culture - Preliminary Knee - Right 02/17/18 17:15 Anaerobic Culture - Preliminary Knee - Right 02/17/18 17:15 Wound Culture - Preliminary Knee - Right 02/17/18 17:15 Anaerobic Culture - Preliminary Knee - Right Assessment and Plan Assessment: Hypertension Status post irrigation and debridement right total knee arthroplasty with polyethylene exchange. (1) S/P total knee arthroplasty Current Visit: No Status: Acute Code(s): Z96.659 - PRESENCE OF UNSPECIFIED ARTIFICIAL KNEE JOINT SNOMED Code(s): 6705110290667 (2) Infection of total right knee replacement Current Visit: Yes Status: Acute Code(s): T84.53XA - INFECT/INFLM REACTION DUE TO INTERNAL R KNEE PROSTH, INIT SNOMED Code(s): 451378430 Plan: 1. Continue routine postoperative care and pain control 2. DVT prophylaxis with aspirin. 3. Physical therapy today. 4. Cultures are pending. White blood cell count is decreasing. 5. Appreciate input from internal medicine and infectious disease. 6. Antibiotics per infectious disease. 7. Anticipate discharge in the next 1-2 days.
[2018-02-18] MEDS: MELOXICAM 7.5 MG TAB PO SCH (09:47)
[2018-02-18] MEDS: ASPIRIN 325 MG TAB PO SCH ×2 (09:47→21:33)
[2018-02-18] MEDS: ceFAZolin IN SWFI 2 GM/20 ML SYRINGE IVP SCH (09:48)
[2018-02-18] MEDS ORDERED: VANCOMYCIN IV PER PHARMACY 1 EACH MISC MISCELLANE SCH (14:00)
--- NOTE | 2018-02-18 14:09 | P.CONS ---
History of Present Illness - Reason for Consult Consult date: 02/18/18 Infected right total knee - History of Present Illness This is a 67-year-old male who recently underwent a right total knee arthroplasty on January [address] Bowie. Patient states he did very well following the surgery and was progressing well with good range of motion. He states that on Friday he noticed that he had significant pain in the knee which kept him up all night. During the day he was not having this type of pain. On the next day he felt moisture around the knee but not sure if it was coming from the wound. He states he also had increased swelling and pain that continued to worsen. Patient followed up with Dr. Bowie and he underwent an aspiration on February 16 of synovial fluid which was orange and cloudy, RBCs 58 ,500, WBCs 110,100, polynuclear cells 97, mononuclear 1, eosinophils 2. Specimen was negative for crystals. At that time, his serum white count was 21 , sed rate 15 and CRP 27. Patient was admitted to [facility] and yesterday underwent I&D with polyethylene exchange with Dr. Bowie. He found infected prepatellar space and knee but deep knee did not appear infected. Patient states that his pain is improved since he underwent I&D. He has received Kefzol in the perioperative period. Patient denies any trauma or fall that would have injured his knee. Review of Systems All systems: negative Constitutional: Reports poor appetite, Denies anorexia, Denies chills, Denies fatigue, Denies fever, Denies lethargy, Denies malaise, Denies sweats, Denies weakness, Denies weight loss Eyes: denies blurred vision, denies pain Ears, nose, mouth and throat: Denies dysphagia, Denies headache, Denies mouth pain, Denies sore throat, Denies vertigo Cardiovascular: Denies chest pain, Denies dyspnea on exertion, Denies edema, Denies lightheadedness, Denies shortness of breath, Denies syncope Respiratory: Denies cough, Denies cough with sputum, Denies dyspnea, Denies excessive sputum, Denies hemoptysis, Denies home oxygen, Denies wheezing Gastrointestinal: Reports loss of appetite, Denies abdominal pain, Denies diarrhea, Denies nausea, Denies vomiting Musculoskeletal: Denies frequent falls, Denies gait dysfunction, Denies muscle cramps, Denies muscle weakness, Denies myalgias Musculoskeletal: right: knee pain, knee stiffness, knee swelling Integumentary: Reports wounds, Denies pruritus, Denies rash Neurological: Reports gait dysfunction, Denies aphasia, Denies change in mentation, Denies confusion, Denies head injury, Denies headaches, Denies numbness, Denies seizures, Denies weakness Psychiatric: Denies anxiety, Denies depression Endocrine: Denies fatigue, Denies weight change Past Medical History Past Medical History: Hypertension History of Any Multi-Drug Resistant Organisms: None Reported Past Surgical History: Appendectomy, Back Surgery, Hernia Repair Additional Past Surgical History / Comment(s): lumbar coflex implant 09/25/17, cervical fusion, right total knee arthroplasty 01/13/2018, I&D with polyethylene exchange right knee 02/17/2018 Past Anesthesia/Blood Transfusion Reactions: No Reported Reaction Past Psychological History: No Psychological Hx Reported Smoking Status: Former smoker Past Alcohol Use History: Occasional Additional Past Alcohol Use History / Comment(s): quit smoking approx 2002, smoked 1ppd from . Patient denied marijuana or illicit drug use. He states he drinks 2 "good" glasses of bourbon a few days every week. He lives at home with his . He denies any pets. 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 Patient served 2 years in the [employer] and was stationed in [place]. Past Drug Use History: Marijuana Additional Drug Use History / Comment(s): occasional use, instructed to hold 24hrs prior to procedure - Past Family History Mother Family Medical History: Cancer Medications and Allergies Home Medications Medication Instructions Recorded Confirmed Type Aspirin [Adult Low Dose Aspirin EC] 81 mg PO DAILY 01/06/18 02/17/18 History Doxazosin [Cardura] 2 mg PO BID 01/06/18 02/17/18 History Hydrochlorothiazide 12.5 mg PO QAM 01/06/18 02/17/18 History Naproxen 500 mg PO BID 01/06/18 02/17/18 History Ramipril [Altace] 10 mg PO BID 01/06/18 02/18/18 History amLODIPine [Norvasc] 10 mg PO QAM 01/06/18 02/17/18 History Aspirin 325 mg PO BID #60 tab 01/14/18 02/17/18 Rx HYDROcodone/APAP 7.5-325MG [[place] 1 - 2 tab PO Q4-6H PRN #84 tab 01/15/18 Rx 7.5-325] Sennosides [Senokot] 8.6 mg PO BID 02/17/18 02/17/18 History Aspirin 325 mg PO BID #60 tab 02/20/18 Rx HYDROcodone/APAP 7.5-325MG [[place] 1 - 2 tab PO Q4-6H PRN #84 tab 02/20/18 Rx 7.5-325] Sennosides [Senokot] 1 tab PO BID #60 tablet 02/20/18 Rx cefTRIAXone [Rocephin] 2,000 mg IVPB Q24HR #42 vial 02/20/18 Rx Allergies Allergy/AdvReac Type Severity Reaction Status Date / Time No Known Allergies Allergy Verified 02/17/18 13:49 Physical Exam Vitals: Vital Signs Temp Pulse Pulse Pulse Resp BP Pulse Ox 02/18/18 07:00 98.9 F 88 18 131/71 02/17/18 23:00 81 119/72 94 L 02/17/18 22:30 72 109/58 02/17/18 22:00 83 115/59 02/17/18 21:45 78 113/57 02/17/18 21:30 76 107/55 02/17/18 21:15 71 105/58 02/17/18 21:00 79 112/58 02/17/18 20:45 77 113/63 02/17/18 20:36 96 02/17/18 20:30 98.3 F 84 15 119/69 94 L 02/17/18 20:15 83 16 125/70 96 02/17/18 19:44 90 16 130/71 98 02/17/18 19:30 77 16 114/59 97 02/17/18 19:15 91 16 119/65 97 02/17/18 19:00 86 16 126/72 97 02/17/18 18:45 86 18 114/66 97 02/17/18 18:31 80 18 121/63 97 02/17/18 18:16 86 18 133/78 97 02/17/18 18:01 97.9 F 92 18 130/66 97 02/17/18 14:06 97.5 F L 54 L 16 171/80 97 Intake and Output 02/17/18 02/18/18 02/18/18 22:59 06:59 14:59 Intake Total 1101 220 Output Total 100 175 Balance 1001 -175 220 Intake: IV 1101 Oral 220 Output: Urine 175 Estimated Blood Loss 100 Other: Weight 99.79 kg Gen: This is an obese 67-year-old male. He is resting in bed appears to be comfortable and in no acute distress. HEENT: Head is atraumatic, normocephalic. Pupils equal, round. Sclerae is anicteric. Oral mucous membranes are moist. No thrush noted. NECK: Supple. No JVD. No lymphadenopathy. No thyromegaly. LUNGS: Clear to auscultation. No wheezes or rhonchi. No intercostal retractions. HEART: Regular rate and rhythm. No murmur. ABDOMEN: Soft. Bowel sounds are present. No masses. No tenderness. EXTREMITIES: No pedal edema. No calf tenderness. Large dressing in place to the right knee which was not removed. One plus edema to the right leg. NEUROLOGICAL: Patient is awake, alert and oriented x3. Cranial nerves 2 through 12 are grossly intact. Results Results: Laboratory Results WBC 13.1 k/uL (3.8-10.6) H 02/18/18 07:40 RBC 3.66 m/uL (4.30-5.90) L 02/18/18 07:40 Hgb 11.9 gm/dL (13.0-17.5) L 02/18/18 07:40 Hct 35.3 % (39.0-53.0) L 02/18/18 07:40 MCV 96.4 fL (80.0-100.0) 02/18/18 07:40 MCH 32.7 pg (25.0-35.0) 02/18/18 07:40 MCHC 33.9 g/dL (31.0-37.0) 02/18/18 07:40 RDW 13.0 % (11.5-15.5) 02/18/18 07:40 Plt Count 176 k/uL (150-450) 02/18/18 07:40 Neutrophils % 81 % 02/18/18 07:40 Lymphocytes % 8 % 02/18/18 07:40 Monocytes % 6 % 02/18/18 07:40 Eosinophils % 3 % 02/18/18 07:40 Basophils % 0 % 02/18/18 07:40 Neutrophils # 10.6 k/uL (1.3-7.7) H 02/18/18 07:40 Lymphocytes # 1.0 k/uL (1.0-4.8) 02/18/18 07:40 Monocytes # 0.8 k/uL (0-1.0) 02/18/18 07:40 Eosinophils # 0.4 k/uL (0-0.7) 02/18/18 07:40 Basophils # 0.1 k/uL (0-0.2) 02/18/18 07:40 CBC & Chem 7: 02/20/18 05:58 02/20/18 05:58 Labs: Abnormal Lab Results - Last 24 Hours (Table) 02/18/18 Range/Units 07:40 WBC 13.1 H (3.8-10.6) k/uL RBC 3.66 L (4.30-5.90) m/uL Hgb 11.9 L (13.0-17.5) gm/dL Hct 35.3 L (39.0-53.0) % Neutrophils # 10.6 H (1.3-7.7) k/uL Microbiology - Last 24 Hours (Table) 02/17/18 17:15 Gram Stain - Preliminary Knee - Right Wound Culture - Preliminary 02/17/18 17:15 Gram Stain - Preliminary Knee - Right Wound Culture - Preliminary 02/17/18 17:15 Anaerobic Culture - Preliminary Knee - Right 02/17/18 17:15 Anaerobic Culture - Preliminary Knee - Right Assessment and Plan Plan: This is a 67-year-old male who presented to the hospital with infected right total knee arthroplasty status post I&D with polyethylene exchange on February 17 and aspiration on February 16. Wound culture from February 16 showing presumptive staph aureus. Patient does not have history of MRSA. He has received During the Perioperative period. Vancomycin Ancef ordered. Continue supportive care. Further recommendations as patient progresses. The above dictated assessment and findings were discussed with Dr. Finley. The impression and plan of care have been directed as dictated. Dena Dover nurse practitioner acting as scribe for Dr. Finley.
[2018-02-18] MEDS ORDERED: VANCOMYCIN 2,000 MG in SODIUM CHLORIDE 0.9% 500 ML 500 ML IVPB ONE (14:30)
[2018-02-18] MEDS: LISINOPRIL 20 MG TAB PO SCH ×2 (15:34→21:33)
[2018-02-18 17:01] LABS: Anion Gap 8 mmol/L; Blood Urea Nitrogen 17 mg/dL (9-20); Calcium 9.3 mg/dL (8.4-10.2); Carbon Dioxide 26 mmol/L (22-30); Chloride 102 mmol/L (98-107); Glucose 115 mg/dL (74-99); Potassium 3.9 mmol/L (3.5-5.1); Sodium 136 mmol/L (137-145)
--- NOTE | 2018-02-18 18:05 | P.CONS ---
History of Present Illness - Reason for Consult Consult date: 02/18/18 Medical management of hypertension - Chief Complaint Right knee pain - History of Present Illness Patient is a 67-year-old male with a known history of hypertension and history of right total knee arthroplasty done on 01/13/2018 who underwent I&D with polyethylene exchange right knee on 02 17 2018 was admitted to the hospital for I&D of the right knee. Patient had right total knee arthroplasty January and since then she is doing very well but suddenly on Friday he noticed increased pain in the right knee. Denied any trauma. Next day was having increased knee swelling and continued pain, patient presented to Dr. Guerrero's office on underwent aspiration on February 16. Patient was admitted to hospital on 02/17/2018 for I&D with polyethylene exchange. Patient was found to have infected prepatellar space and knee. Currently patient denied any complaints of chest pain or shortness of breath. No headache or dizziness or lightheadedness. No nausea vomiting or abdominal pain. No worsening right knee pain. Patient says that right knee pain is improved with with I&D. Wound cultures are currently pending at this time. WBC 13.1, WBC was 21 2 days ago and sed rate 15 CRP 27 Review of Systems Constitutional: Patient denies any fever or chills . No generalized weakness or weight loss. Abdomen: Patient denied nausea vomiting and diarrhea and abdominal pain. Cardiovascular: Patient denies any chest pain or short of breath no palpitations. Respiratory: patient denied any cough is from production. No shortness of breath Neurologic: Patient denied any numbness or tingling headache. Musculoskeletal: Patient denies any complaints of joint swelling or deformity. Right knee pain and swelling Skin: Negative Psychiatric: Negative Endocrine: No heat or cold intolerance. No recent weight gain. Genitourinary: No dysuria or hematuria. All other 14 point ROS negative except the above Past Medical History Past Medical History: Hypertension History of Any Multi-Drug Resistant Organisms: None Reported Past Surgical History: Back Surgery Additional Past Surgical History / Comment(s): lumbar coflex implant 09/25/17, cervical fusion Past Anesthesia/Blood Transfusion Reactions: No Reported Reaction Past Psychological History: No Psychological Hx Reported Smoking Status: Former smoker Past Alcohol Use History: Occasional Additional Past Alcohol Use History / Comment(s): quit smoking approx 2002, smoked 1ppd from Past Drug Use History: Marijuana Additional Drug Use History / Comment(s): occasional use, instructed to hold 24hrs prior to procedure - Past Family History Mother Family Medical History: Cancer Medications and Allergies Home Medications Medication Instructions Recorded Confirmed Type Aspirin [Adult Low Dose Aspirin EC] 81 mg PO DAILY 01/06/18 02/17/18 History Doxazosin [Cardura] 2 mg PO BID 01/06/18 02/17/18 History Hydrochlorothiazide 12.5 mg PO QAM 01/06/18 02/17/18 History Naproxen 500 mg PO BID 01/06/18 02/17/18 History Ramipril [Altace] 10 mg PO BID 01/06/18 02/18/18 History amLODIPine [Norvasc] 10 mg PO QAM 01/06/18 02/17/18 History Aspirin 325 mg PO BID #60 tab 01/14/18 02/17/18 Rx HYDROcodone/APAP 7.5-325MG [[place] 1 - 2 tab PO Q4-6H PRN #84 tab 01/15/18 Rx 7.5-325] Sennosides [Senokot] 8.6 mg PO BID 02/17/18 02/17/18 History Allergies Allergy/AdvReac Type Severity Reaction Status Date / Time No Known Allergies Allergy Verified 02/17/18 13:49 Physical Exam Vitals: Vital Signs Temp Pulse Pulse Pulse Resp BP Pulse Ox 02/18/18 07:00 98.9 F 88 18 131/71 02/17/18 23:00 81 119/72 94 L 02/17/18 22:30 72 109/58 02/17/18 22:00 83 115/59 02/17/18 21:45 78 113/57 02/17/18 21:30 76 107/55 02/17/18 21:15 71 105/58 02/17/18 21:00 79 112/58 02/17/18 20:45 77 113/63 02/17/18 20:36 96 02/17/18 20:30 98.3 F 84 15 119/69 94 L 02/17/18 20:15 83 16 125/70 96 02/17/18 19:44 90 16 130/71 98 02/17/18 19:30 77 16 114/59 97 02/17/18 19:15 91 16 119/65 97 02/17/18 19:00 86 16 126/72 97 02/17/18 18:45 86 18 114/66 97 02/17/18 18:31 80 18 121/63 97 02/17/18 18:16 86 18 133/78 97 02/17/18 18:01 97.9 F 92 18 130/66 97 02/17/18 14:06 97.5 F L 54 L 16 171/80 97 Intake and Output 02/17/18 02/18/18 02/18/18 22:59 06:59 14:59 Intake Total 1101 220 Output Total 100 175 Balance 1001 -175 220 Intake: IV 1101 Oral 220 Output: Urine 175 Estimated Blood Loss 100 Other: Weight 99.79 kg PHYSICAL EXAMINATION: Patient is lying in the bed comfortably, no acute distress, awake alert and oriented.. HEENT: Normocephalic. Neck is supple. Pupils reactive. Nostrils clear. Oral cavity is moist. Ears reveal no drainage. Neck reveals no JVD, carotid bruits, or thyromegaly. CHEST EXAMINATION: Trachea is central. Symmetrical expansion. Lung johnston clear to auscultation and percussion. CARDIAC: Normal S1, S2 with no gallops. No murmurs ABDOMEN: Soft. Bowel sounds normal. No organomegaly. No abdominal bruits. Extremities: reveal no edema. No clubbing or cyanosis Neurologically awake, alert, oriented x3 with well-coordinated movements. No focal deficits noted Skin: No rash or skin lesions. Psychiatric: Coperative. Nonsuicidal Musculoskeletal: Right knee I&D site is bandaged. Decreased range of motion.. Results CBC & Chem 7: 02/18/18 07:40 02/18/18 16:11 Labs: Abnormal Lab Results - Last 24 Hours (Table) 02/18/18 Range/Units 07:40 WBC 13.1 H (3.8-10.6) k/uL RBC 3.66 L (4.30-5.90) m/uL Hgb 11.9 L (13.0-17.5) gm/dL Hct 35.3 L (39.0-53.0) % Neutrophils # 10.6 H (1.3-7.7) k/uL Microbiology - Last 24 Hours (Table) 02/17/18 17:15 Gram Stain - Preliminary Knee - Right Wound Culture - Preliminary 02/17/18 17:15 Gram Stain - Preliminary Knee - Right Wound Culture - Preliminary 02/17/18 17:15 Anaerobic Culture - Preliminary Knee - Right 02/17/18 17:15 Anaerobic Culture - Preliminary Knee - Right Assessment and Plan Assessment: Right knee arthroplasty infection status post irrigation and debridement of the right total knee with polyethylene exchange. On 02/17/2018 History of right total knee arthroplasty on 01/13/2018 Hypertension controlled History of back surgery and chronic back pain Previous history of smoking DVT prophylaxis Plan: Patient will be continued on pain management. Follow up wound cultures. Patient was started on vancomycin with aspiration of the right knee fluid cultures growing presumptive staph aureus. ID is on board. We will continue with home blood pressure medications in the form of Norvasc, Ramipril and HCTZ. Continue to follow closely and further recommendations based on the clinical course. Thank you for your consult. Time with Patient: Greater than 30
[2018-02-18] MEDS: SENNOSIDES-DOCUSATE SODIUM 1 EACH TAB PO SCH (21:33)
[2018-02-18] MEDS: DOXAZOSIN 2 MG TAB PO SCH (21:33)
--- NOTE | 2018-02-19 00:39 | P.CON ---
Consult Note - . Consult date: 02/18/18 Assessment/Plan:: This is a 67-year-old male who recently underwent a right total knee arthroplasty on January [address] Bowie. Patient states he did very well following the surgery and was progressing well with good range of motion. He states that on Friday he noticed that he had significant pain in the knee which kept him up all night. During the day he was not having this type of pain. On the next day he felt moisture around the knee but not sure if it was coming from the wound. He states he also had increased swelling and pain that continued to worsen. Patient followed up with Dr. Bowie and he underwent an aspiration on February 16 of synovial fluid which was orange and cloudy, RBCs 58 ,500, WBCs 110,100, polynuclear cells 97, mononuclear 1, eosinophils 2. Specimen was negative for crystals. At that time, his serum white count was 21 , sed rate 15 and CRP 27. Patient was admitted to [facility] and yesterday underwent I&D with polyethylene exchange with Dr. Bowie. He found infected prepatellar space and knee but deep knee did not appear infected. Patient states that his pain is improved since he underwent I&D. He has received Kefzol in the perioperative period. Patient denies any trauma or fall that would have injured his knee. Please see the consult note as dictated by nurse practitioner Dena Dover. 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 Constantly underwent a right total knee arthroplasty for the significant progressive degenerative joint disease. The patient is very active and is looking forward to his recovery in [place] where [place] go to [place]. He however developed as noted increasing pain and swelling to the right leg with some drainage. As reassured evidence of purulent material and now is been taken the operating room for incision and drainage of polyethylene exchange of the right knee. This is likely a staphylococcal infection. The patient is now status post the drainage within proven to this pain but there is evidence of the significant infection to the joint. The goal this point in time will be antimicrobial therapy. The patient is instructed on the need for her to be intravenous to allow penetration into the joint space and bony structure. Vancomycin and cefazolin being utilized for now until the final culture is available regarding the susceptibilities. This will drive the antibiotic choices. PICC line will need to be placed. Patient would like to take care of his antibiotics in the home setting. He is extremely disappointed about inability to go and spend his winter in [place]. We discussed some potential options of how he medial without difficulty. I agree with evaluation, assessment and plan as dictated by nurse practitioner Mrs. Dena Dover.
[2018-02-19] MEDS: ceFAZolin IN SWFI 2 GM/20 ML SYRINGE IVP SCH ×3 (03:23→17:06)
[2018-02-19] MEDS: HYDROcodone/APAP 7.5-325MG 1 EACH TAB PO PRN ×4 (04:28→21:11)
[2018-02-19] MEDS: VANCOMYCIN 2,000 MG in SODIUM CHLORIDE 0.9% 500 ML 500 ML IVPB SCH ×2 (04:28→17:06)
[2018-02-19 07:43] LABS: Anion Gap 8 mmol/L; Blood Urea Nitrogen 12 mg/dL (9-20); Calcium 9.1 mg/dL (8.4-10.2); Carbon Dioxide 28 mmol/L (22-30); Chloride 105 mmol/L (98-107); Glucose 101 mg/dL (74-99); Potassium 3.6 mmol/L (3.5-5.1); Sodium 141 mmol/L (137-145)
[2018-02-19] MEDS: LISINOPRIL 20 MG TAB PO SCH ×2 (08:18→20:55)
[2018-02-19] MEDS: amLODIPine 10 MG TAB PO SCH (08:19)
[2018-02-19] MEDS: ASPIRIN 325 MG TAB PO SCH ×2 (08:19→20:55)
[2018-02-19] MEDS: MELOXICAM 7.5 MG TAB PO SCH (08:19)
[2018-02-19] MEDS: DOXAZOSIN 2 MG TAB PO SCH ×2 (08:23→20:55)
[2018-02-19] MEDS: hydrOXYzine PAMOATE 25 MG CAP PO PRN ×3 (09:33→21:07)
--- NOTE | 2018-02-19 12:21 | P.PN ---
Subjective Progress Note Date: 02/19/18 This is a 67-year-old male who is status post irrigation and debridement of right total knee arthroplasty with polyethylene exchange. This is postoperative day #2. Patient is seen and evaluated at bedside with Dr. Jamarcus Bowie. Patient states that his pain is well controlled today and he denies any new complaints. Patient denies any fever/chills, numbness, weakness, tingling, abdominal pain, shortness of breath or chest pain. Objective - Vital Signs Vital signs: Vital Signs Temp 97.9 F 02/19/18 07:00 Pulse 78 02/19/18 07:00 Resp 16 02/19/18 07:00 BP 153/77 02/19/18 07:00 Pulse Ox 97 02/19/18 07:00 Intake & Output 02/18/18 02/19/18 02/19/18 18:59 06:59 18:59 Intake Total 560 Output Total 750 600 Balance -190 -600 Intake: Oral 560 Output: Urine 750 600 Other: # Voids 1 - Exam Vital signs are stable. Patient is in no acute distress and is alert and oriented 3. Calf is soft and nontender to palpation. Dressing is intact with mild drainage noted. Patient has full foot and ankle motion without pain or difficulty. Neurovascular status and circulatory status are intact. - Labs CBC & Chem 7: 02/18/18 07:40 02/19/18 06:38 Labs: Abnormal Lab Results - Last 24 Hours (Table) 02/18/18 02/19/18 Range/Units 16:11 06:38 Sodium 136 L (137-145) mmol/L Glucose 115 H 101 H (74-99) mg/dL Microbiology - Last 24 Hours (Table) 02/17/18 17:15 Gram Stain - Preliminary Knee - Right Wound Culture - Preliminary Presumptive Staph aureus 02/17/18 17:15 Gram Stain - Preliminary Knee - Right Wound Culture - Preliminary Assessment and Plan Assessment: Hypertension Status post irrigation and debridement right total knee arthroplasty with polyethylene exchange. (1) S/P total knee arthroplasty Current Visit: No Status: Acute Code(s): Z96.659 - PRESENCE OF UNSPECIFIED ARTIFICIAL KNEE JOINT SNOMED Code(s): 5593943691543 (2) Infection of total right knee replacement Current Visit: Yes Status: Acute Code(s): T84.53XA - INFECT/INFLM REACTION DUE TO INTERNAL R KNEE PROSTH, INIT SNOMED Code(s): 914417968 Plan: 1. Continue routine postoperative care and pain control. 2. DVT prophylaxis with aspirin. 3. Physical therapy today. 4. Final cultures are pending. Preliminary cultures show presumptive staph aureus. 5. Appreciate input from internal medicine and infectious disease. 6. Antibiotics per infectious disease. Patient is awaiting PICC line placement. 7. Anticipate discharge home in the next 1-2 days.
[2018-02-19] MEDS: MULTIVITAMINS, THERA 1 EACH TAB PO SCH (14:40)
[2018-02-19] MEDS: SODIUM CHLORIDE 0.9% 1,000 ML IV SCH (15:13)
--- NOTE | 2018-02-19 19:41 | PN ---
PROGRESS NOTE DATE OF SERVICE: February 19, 2018. PRESENTING COMPLAINT: Pain right knee. INTERVAL HISTORY: This is a patient with infected right knee arthroplasty status post I and D and poorly exchange. Patient is tolerating a diet. No fever. No chills. Is on IV antibiotics. REVIEW OF SYSTEMS: Done for constitutional, cardiovascular, GI, pulmonary; relevant findings as above. CURRENT MEDICATIONS: Reviewed that include IV Ancef and IV vancomycin. EXAMINATION: VITAL SIGNS: Afebrile, pulse 80, respirations 16, blood pressure 134/79, pulse ox 94 percent room air. GENERAL APPEARANCE: Sitting up in a chair, comfortable. EYES: Pupils are equal. Conjunctivae normal. NECK: JVD not raised. Mass not palpable. RESPIRATORY effort normal. LUNGS are clear. CARDIOVASCULAR: 1st and 2nd sounds. No edema. ABDOMEN: Soft, nontender. Liver and spleen not palpable. PSYCHIATRY: Alert and oriented times three. Mood and affect normal. MUSCULOSKELETAL: Right knee in a dressing. Evidence of OA especially in the hands. INVESTIGATIONS: White count 13.1, hemoglobin 11.9, potassium 3.6, BUN and creatinine normal. The patient's Gram stain coming back showing Staph aureus. ASSESSMENT: 1. Infected right total knee arthroplasty, status post I and D with exchange with cultures growing Staph aureus. 2. Essential hypertension. 3. Primary osteoarthritis. PLAN: Continue with IV antibiotics. Await culture results. Discussed with the patient and that will determine the further course of action. Questions were answered. Thank you Dr. Bowie. MMBROOKEL / MELISSAN: [id number] /
[2018-02-19] MEDS: SENNOSIDES-DOCUSATE SODIUM 1 EACH TAB PO SCH (20:56)
[2018-02-20] MEDS: ceFAZolin IN SWFI 2 GM/20 ML SYRINGE IVP SCH ×2 (01:07→09:16)
[2018-02-20] MEDS: VANCOMYCIN 2,000 MG in SODIUM CHLORIDE 0.9% 500 ML 500 ML IVPB SCH (05:35)
[2018-02-20] MEDS: HYDROcodone/APAP 7.5-325MG 1 EACH TAB PO PRN ×2 (05:35→14:12)
[2018-02-20] MEDS ORDERED: ALPRAZolam 0.5 MG TAB PO STA ×2 (05:35→11:15)
--- NOTE | 2018-02-20 05:42 | P.PN ---
Subjective Progress Note Date: 02/19/18 This is a 67-year-old male who recently underwent a right total knee arthroplasty on January [address] Bowie. Patient states he did very well following the surgery and was progressing well with good range of motion. He states that on Friday he noticed that he had significant pain in the knee which kept him up all night. During the day he was not having this type of pain. On the next day he felt moisture around the knee but not sure if it was coming from the wound. He states he also had increased swelling and pain that continued to worsen. Patient followed up with Dr. Bowie and he underwent an aspiration on February 16 of synovial fluid which was orange and cloudy, RBCs 58 ,500, WBCs 110,100, polynuclear cells 97, mononuclear 1, eosinophils 2. Specimen was negative for crystals. At that time, his serum white count was 21 , sed rate 15 and CRP 27. Patient was admitted to [facility] and yesterday underwent I&D with polyethylene exchange with Dr. Bowie. He found infected prepatellar space and knee but deep knee did not appear infected. Patient states that his pain is improved since he underwent I&D. He has received Kefzol in the perioperative period. Patient denies any trauma or fall that would have injured his knee. 02/19/2018 patient anxious about PICC still angry about the infection Objective - Vital Signs Vital signs: Vital Signs Temp 98.1 F 02/20/18 00:23 Pulse 96 02/20/18 00:23 Resp 16 02/20/18 00:23 BP 141/79 02/20/18 00:23 Pulse Ox 94 L 02/19/18 15:38 Intake & Output 02/19/18 02/19/18 02/20/18 06:59 18:59 06:59 Intake Total 740 325 Output Total 600 Balance -600 740 325 Intake: Intake, IV Titration 520 325 Amount Sodium Chloride 0.9% 1, 520 325 000 ml @ 65 mls/hr IV . [id number] DEMAR Rx#:[id number] Oral 220 Output: Urine 600 Other: # Voids 1 3 - Exam Gen: This is an obese 67-year-old male. He is resting in bed appears to be comfortable and in no acute distress. HEENT: Head is atraumatic, normocephalic. Pupils equal, round. Sclerae is anicteric. Oral mucous membranes are moist. No thrush noted. NECK: Supple. No JVD. No lymphadenopathy. No thyromegaly. LUNGS: Clear to auscultation. No wheezes or rhonchi. No intercostal retractions. HEART: Regular rate and rhythm. No murmur. ABDOMEN: Soft. Bowel sounds are present. No masses. No tenderness. EXTREMITIES: No pedal edema. No calf tenderness. Large dressing in place to the right knee which was not removed. One plus edema to the right leg. NEUROLOGICAL: Patient is awake, alert and oriented x3. Cranial nerves 2 through 12 are grossly intact. - Labs CBC & Chem 7: 02/18/18 07:40 02/19/18 06:38 Labs: Abnormal Lab Results - Last 24 Hours (Table) 02/19/18 Range/Units 06:38 Glucose 101 H (74-99) mg/dL Microbiology - Last 24 Hours (Table) 02/17/18 17:15 Anaerobic Culture - Preliminary Knee - Right 02/17/18 17:15 Anaerobic Culture - Preliminary Knee - Right 02/17/18 17:15 Gram Stain - Final Knee - Right Wound Culture - Final Staphylococcus aureus 02/17/18 17:15 Gram Stain - Final Knee - Right Wound Culture - Final Laboratory Results WBC 13.1 k/uL (3.8-10.6) H 02/18/18 07:40 RBC 3.66 m/uL (4.30-5.90) L 02/18/18 07:40 Hgb 11.9 gm/dL (13.0-17.5) L 02/18/18 07:40 Hct 35.3 % (39.0-53.0) L 02/18/18 07:40 MCV 96.4 fL (80.0-100.0) 02/18/18 07:40 MCH 32.7 pg (25.0-35.0) 02/18/18 07:40 MCHC 33.9 g/dL (31.0-37.0) 02/18/18 07:40 RDW 13.0 % (11.5-15.5) 02/18/18 07:40 Plt Count 176 k/uL (150-450) 02/18/18 07:40 Neutrophils % 81 % 02/18/18 07:40 Lymphocytes % 8 % 02/18/18 07:40 Monocytes % 6 % 02/18/18 07:40 Eosinophils % 3 % 02/18/18 07:40 Basophils % 0 % 02/18/18 07:40 Neutrophils # 10.6 k/uL (1.3-7.7) H 02/18/18 07:40 Lymphocytes # 1.0 k/uL (1.0-4.8) 02/18/18 07:40 Monocytes # 0.8 k/uL (0-1.0) 02/18/18 07:40 Eosinophils # 0.4 k/uL (0-0.7) 02/18/18 07:40 Basophils # 0.1 k/uL (0-0.2) 02/18/18 07:40 Sodium 141 mmol/L (137-145) 02/19/18 06:38 Potassium 3.6 mmol/L (3.5-5.1) 02/19/18 06:38 Chloride 105 mmol/L (98-107) 02/19/18 06:38 Carbon Dioxide 28 mmol/L (22-30) 02/19/18 06:38 Anion Gap 8 mmol/L 02/19/18 06:38 BUN 12 mg/dL (9-20) 02/19/18 06:38 Creatinine 0.85 mg/dL (0.66-1.25) 02/19/18 06:38 Est GFR (CKD-EPI)AfAm >90 (>60 ml/min/1.73 sqM) 02/19/18 06:38 Est GFR (CKD-EPI)NonAf 90 (>60 ml/min/1.73 sqM) 02/19/18 06:38 Glucose 101 mg/dL (74-99) H 02/19/18 06:38 Calcium 9.1 mg/dL (8.4-10.2) 02/19/18 06:38 Microbiology 02/17/18 17:15 Knee - Right Anaerobic Culture - Preliminary 02/17/18 17:15 Knee - Right Anaerobic Culture - Preliminary 02/17/18 17:15 Knee - Right Gram Stain - Final 02/17/18 17:15 Knee - Right Wound Culture - Final Staphylococcus aureus 02/17/18 17:15 Knee - Right Gram Stain - Final 02/17/18 17:15 Knee - Right Wound Culture - Final Assessment and Plan (1) Infection of total right knee replacement Narrative/Plan: 67-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 Constantly underwent a right total knee arthroplasty for the significant progressive degenerative joint disease. The patient is very active and is looking forward to his recovery in [place] go to [place]. He however developed as noted increasing pain and swelling to the right leg with some drainage. As reassured evidence of purulent material and now is been taken the operating room for incision and drainage of polyethylene exchange of the right knee. This is likely a staphylococcal infection. The patient is now status post the drainage within proven to this pain but there is evidence of the significant infection to the joint. The goal this point in time will be antimicrobial therapy. The patient is instructed on the need for her to be intravenous to allow penetration into the joint space and bony structure. Vancomycin and cefazolin being utilized for now until the final culture is available regarding the susceptibilities. This will drive the antibiotic choices. PICC line will need to be placed. Patient would like to take care of his antibiotics in the home setting. He is extremely disappointed about inability to go and spend his winter in [place]. 02/19/2018 improved will arrange PICC await final culture for home IV or if going to office due to cost Current Visit: Yes Status: Acute Code(s): T84.53XA - INFECT/INFLM REACTION DUE TO INTERNAL R KNEE PROSTH, INIT SNOMED Code(s): 755670971
[2018-02-20] MEDS: SODIUM CHLORIDE 0.9% 1,000 ML IV SCH (06:07)
[2018-02-20 06:18] LABS: Basophils % (A) 0 %; Eosinophils # (A) 0.5 k/uL (0-0.7); Eosinophils % (A) 5 %; HCT 34.9 % (39.0-53.0); HGB 11.7 gm/dL (13.0-17.5); Lymphocytes # (A) 1.1 k/uL (1.0-4.8); Lymphocytes % (A) 13 %; MCHC 33.7 g/dL (31.0-37.0); Mean Platelet Volume 7.3; Monocytes # (A) 0.6 k/uL (0-1.0); Monocytes % (A) 7 %; Neutrophils # (A) 6.3 k/uL (1.3-7.7); Neutrophils % (A) 73 %; Platelet Count 209 k/uL (150-450); RBC 3.67 m/uL (4.30-5.90); RDW 12.9 % (11.5-15.5); WBC 8.6 k/uL (3.8-10.6)
[2018-02-20 06:25] LABS: Anion Gap 7 mmol/L; Blood Urea Nitrogen 11 mg/dL (9-20); Carbon Dioxide 29 mmol/L (22-30); Chloride 104 mmol/L (98-107); Glucose 101 mg/dL (74-99); INR 0.9 (<1.2); Potassium 3.8 mmol/L (3.5-5.1); Prothrombin Time 10.2 sec (9.0-12.0); Sodium 140 mmol/L (137-145)
[2018-02-20] MEDS: DOXAZOSIN 2 MG TAB PO SCH (08:12)
[2018-02-20] MEDS: ASPIRIN 325 MG TAB PO SCH (08:12)
[2018-02-20] MEDS: LISINOPRIL 20 MG TAB PO SCH (08:12)
[2018-02-20] MEDS: MULTIVITAMINS, THERA 1 EACH TAB PO SCH (08:13)
[2018-02-20] MEDS: MELOXICAM 7.5 MG TAB PO SCH (08:13)
[2018-02-20] MEDS: amLODIPine 10 MG TAB PO SCH (08:13)
--- NOTE | 2018-02-20 09:53 | P.DS ---
Providers Date of admission: 02/17/18 16:47 Expected date of discharge: 02/20/18 Attending physician: Jamarcus Bowie Consults: 02/17/18 16:27 Consult Physician Routine Consulting Provider: Satya Champagne Consult Reason/Comments: medical management Do you want consulting provider notified?: Yes 02/17/18 16:30 Consult Physician Routine Consulting Provider: Rojelio Finley Consult Reason/Comments: infected right total knee Do you want consulting provider notified?: Yes Primary care physician: Prashanth Childers - Discharge Diagnosis(es) (1) S/P total knee arthroplasty Current Visit: No Status: Acute (2) Infection of total right knee replacement Current Visit: Yes Status: Acute Hospital Course: This is a 67-year-old male who underwent a right total knee arthroplasty on 01/13. The patient presented as an outpatient for increased pain and swelling in the right knee on 02/16/2018. The right knee was aspirated revealing infection. After discussion and consideration patient elects to proceed with irrigation and debridement of right total knee arthroplasty with polyethylene exchange. The patient is seen preoperatively by Dr. Bowie. Patient is admitted to [facility] on 02/17/2018 for irrigation and debridement of right total knee arthroplasty with polyethylene exchange. The procedures performed without complication or sequelae. There was evidence for infection of the prepatellar space of the right knee. There was no evidence for deep right knee infection. Cultures are positive for staph aureus. Patient received a PICC line and IV antibiotics are being managed by infectious disease. The patient is doing well postoperatively. Labs and vital signs are stable on day of discharge. Patient refused homecare physical therapy and CPM. On day of discharge patient's knee incision is healing well. There is minimal erythema. There is minimal drainage noted at this time. Surgical clips are intact. There is minimal soft tissue swelling to the knee. Patient has full foot and ankle motion without difficulty or pain. Neurovascular status to the right lower extremity is intact. Patient is discharged home in good condition. Please see med rec for accurate list of home medications. Plan - Discharge Summary Discharge Rx Participant: No New Discharge Prescriptions: New Aspirin 325 mg PO BID #60 tab HYDROcodone/APAP 7.5-325MG [[place] 7.5-325] 1 - 2 tab PO Q4-6H PRN #84 tab PRN Reason: Pain Sennosides [Senokot] 1 tab PO BID #60 tablet No Action amLODIPine [Norvasc] 10 mg PO QAM Ramipril [Altace] 10 mg PO BID Naproxen 500 mg PO BID Hydrochlorothiazide 12.5 mg PO QAM Doxazosin [Cardura] 2 mg PO BID Aspirin [Adult Low Dose Aspirin EC] 81 mg PO DAILY Aspirin 325 mg PO BID #60 tab HYDROcodone/APAP 7.5-325MG [[place] 7.5-325] 1 - 2 tab PO Q4-6H PRN #84 tab PRN Reason: Pain Sennosides [Senokot] 8.6 mg PO BID Discharge Medication List Aspirin [Adult Low Dose Aspirin EC] 81 mg PO DAILY 01/06/18 [History] Doxazosin [Cardura] 2 mg PO BID 01/06/18 [History] Hydrochlorothiazide 12.5 mg PO QAM 01/06/18 [History] Naproxen 500 mg PO BID 01/06/18 [History] Ramipril [Altace] 10 mg PO BID 01/06/18 [History] amLODIPine [Norvasc] 10 mg PO QAM 01/06/18 [History] Aspirin 325 mg PO BID #60 tab 01/14/18 [Rx] HYDROcodone/APAP 7.5-325MG [[place] 7.5-325] 1 - 2 tab PO Q4-6H PRN #84 tab [Rx] Sennosides [Senokot] 8.6 mg PO BID 02/17/18 [History] Aspirin 325 mg PO BID #60 tab 02/20/18 [Rx] HYDROcodone/APAP 7.5-325MG [[place] 7.5-325] 1 - 2 tab PO Q4-6H PRN #84 tab [Rx] Sennosides [Senokot] 1 tab PO BID #60 tablet 02/20/18 [Rx] Follow up Appointment(s)/Referral(s): Jamarcus Bowie DO [Doctor of Osteopathic Medicine] - 2 Weeks Activity/Diet/Wound Care/Special Instructions: Weightbearing as tolerated with a walker. Daily dressing changes, keep incision clean and dry. May shower if no drainage from incision. Antibiotics per infectious disease. Please follow up with [facility] and call with questions or concerns [phone]. Discharge Disposition: HOME WITH HOME HEALTH SERVICES
[2018-02-20] MEDS ORDERED: cefTRIAXone 2,000 MG in SODIUM CHLORIDE 0.9% 100 ML IVPB SCH (12:00)
--- NOTE | 2018-02-20 14:13 | US ---
EXAMINATION TYPE: US venous doppler duplex LE RT DATE OF EXAM: 02/20/2018 2:05 PM COMPARISON: NONE CLINICAL HISTORY: swelling. Right knee replacement surgery SIDE PERFORMED: Right TECHNIQUE: The lower extremity deep venous system is examined utilizing real time linear array sonog christohpe with graded compression, doppler sonography and color-flow sonography. VESSELS IMAGED: External Iliac Vein (EIV) Common Femoral Vein Deep Femoral Vein Greater Saphenous Vein * Femoral Vein Popliteal Vein Small Saphenous Vein * Proximal Calf Veins (* superficial vessels) Right Leg: Negative for DVT IMPRESSION: 1. Right lower extremity negative for deep venous thrombosis
--- NOTE | 2018-02-20 14:17 | IR ---
PICC LINE PLACEMENT: HISTORY: Infection requiring long-term antibiotic therapy PROCEDURE: Ultrasound and fluoroscopic guidance of PICC line placement. COMPLICATIONS: None ANESTHESIA: 1. 1% Lidocaine locally. FINDINGS/TECHNIQUE: The procedure was explained to the patient. The risks, complications, benefits and alternatives were discussed and any questions were answered. Informed consent was obtained. The patient was placed supine on the fluoroscopic table and prepped and draped in the usual sterile fash ion. Utilizing a 21 gauge needle and sonographic and fluoroscopic guidance, access in the left basi lic vein vein was achieved and there is placement of a 0.018 guidewire. The vein is patent. A 4-F s gerber was placed over the guidewire. The guidewire and dilator were removed and a 4-F. PICC line was placed through the sheath with the tip at the level of the SVC. The sheath was removed, the cathete r was flushed and sutured into position. The patient was stable throughout the procedure and remaine d stable upon discharge from the Department of Radiology. The vein puncture was patent under ultrasound. A jackson scale image was obtained to document patency of the vein punctured. All elements of the maximal barrier technique were utilized. FLUOROSCOPY TIME: 0.4 minutes and one image submitted IMPRESSION: Successful PICC line placement under ultrasound and fluoroscopic guidance.
[2018-02-20 17:05] VITALS: BP 136/64; PULSE 76; RESP 16; TEMP 98.2
--- NOTE | 2018-02-21 22:50 | PN ---
PROGRESS NOTE DATE OF SERVICE: 02/20/2018 PRESENTING COMPLAINT: Right knee surgery. INTERVAL HISTORY: Patient is seen by me on 02/20/2018, status post right knee arthroplasty, status post I and D. Overall feeling better. Some pain is present. No new issues. Did work with therapy. No fever, no chills. REVIEW OF SYSTEMS: Done for constitutional, cardiovascular, GI, pulmonary, musculoskeletal and findings as above. CURRENT MEDICATIONS: Reviewed. PHYSICAL EXAMINATION: Temperature 98.3, pulse 71, respiratory rate 18, blood pressure 140/77, pulse ox 94% on room air. GENERAL APPEARANCE: Sitting up, comfortable. EYES: Pupils equal. Conjunctivae normal. NECK: JVD not raised. Mass not palpable. Respiratory effort normal. LUNGS: Clear. CARDIOVASCULAR: First and second sounds. No edema. ABDOMEN: Soft, nontender. Liver and spleen not palpable. PSYCHIATRY: Alert and oriented x3. Mood and affect normal. INVESTIGATIONS: White count 8.6, hemoglobin 11.7, potassium 3.8. Doppler ultrasound negative for DVT. ASSESSMENT: 1. 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 2. Essential hypertension. 3. Primary osteoarthritis. 4. Acute postoperative blood loss anemia as expected from surgery. Hemoglobin dropped from 13.9 to 11.7. PLAN: Continue current medication and treatment plan. Antibiotics are being determined by Dr. Finley. Looks like patient will be going home on IV ceftriaxone. MMODL / IJN: [id number] /
== END 2018-02-20 16:43 | disposition home health service (06) | DRG 486 ==
LOC: ORWHC2ENDO 13:49 → 4SSUR 16:47 → ORWHC2ENDO 16:47 → 4SSUR 20:16
PROVIDERS: ADMIT Orthopaedic Surgery; ATTEND Orthopaedic Surgery
PROC: 0SPC09Z Removal of Liner from Right Knee Joint, Open Approach (ICD-10-PCS; principal; 2018-02-17 08:45)
PROC: 0SUV09Z Supplement Right Knee Joint, Tibial Surface with Liner, Open Approach (ICD-10-PCS; principal; 2018-02-17 08:45)
PROC: 02HV33Z Insertion of Infusion Device into Superior Vena Cava, Percutaneous Approach (ICD-10-PCS; 2018-02-20 12:25)
DX: T84.53XA Infection and inflammatory reaction due to internal right knee prosthesis, initial encounter (principal); D62 Acute posthemorrhagic anemia; Y83.1 Surgical operation with implant of artificial internal device as the cause of abnormal reaction of the patient, or of later complication, without mention of misadventure at the time of the procedure; B95.8 Unspecified staphylococcus as the cause of diseases classified elsewhere; I10 Essential (primary) hypertension; M19.91 Primary osteoarthritis, unspecified site; Z79.82 Long term (current) use of aspirin; Z87.891 Personal history of nicotine dependence; Z98.1 Arthrodesis status; Z79.899 Other long term (current) drug therapy; E66.9 Obesity, unspecified; Z68.29 Body mass index [BMI] 29.0-29.9, adult
CPT/HCPCS: 36569; 76937; 77001; 80048; 80202; 85025; 85610; 87070; 87075; 87077; 87186; 87205; 94760